=== PATIENT | male | born 1965 | race African-American/Black ===

== ENCOUNTER 2023-05-04 14:03 | Inpatient (IN) | payer OTHER ==
[~2023-05-04] VITALS: Ht 177.8 cm; Wt 86.3 kg
[2023-05-04] VITALS (13 sets, daily range): BP systolic 101–119; BP diastolic 71–77; PULSE 112–123; RESP 14–38; TEMP 97.6–97.8
[2023-05-04] MEDS ORDERED: PANTOPRAZOLE SODIUM 40 MG/VIAL IV ONE (14:30)
[2023-05-04] MEDS ORDERED: SODIUM CHLORIDE 0.9% 1,000 ML IV ONE (14:30)
[2023-05-04] MEDS ORDERED: MIDAZOLAM HCL 100 MG in DEXT 5% WATER 80 ML IV ONE (14:30)
[2023-05-04 14:40] LABS: BASOPHILS % 0.6 % (0.0-2.0); EOSINOPHILS % 0.1 % (0.0-5.0); LYMPHOCYTES % 24.3 % (20.0-50.0); MEAN CORPUSCULAR HEMOGLOBIN 29.4 pg (28.0-32.0); MEAN CORPUSCULAR VOLUME 113.4 fL (80.0-94.0); MEAN PLATELET VOLUME 8.4 fl (7.4-10.4); MONOCYTES % 8.1 % (2.0-8.0); NEUTROPHILS % 66.9 % (40.0-76.0); PLATELET 379 x1000/uL (130-400); RED CELL DISTRIBUTION WIDTH 21.8 % (11.6-14.6)
[2023-05-04] MEDS ORDERED: MIDAZOLAM HCL 100 MG in SODIUM CHLORIDE 0.9% 100 ML IV PRN (14:45)
[2023-05-04 14:47] LABS: HEMOGLOBIN. 4.7 g/dL (14.0-18.0)
[2023-05-04 14:48] LABS: HEMATOCRIT. 18.2 % (42.0-52.0); INR 1.2; PARTIAL THROMBOPLASTIN TIME 29.1 sec (23.4-31.0)
[2023-05-04 14:52] LABS: CHLORIDE 112 mEq/L (98-107)
[2023-05-04] MEDS ORDERED: CEFTRIAXONE 1GM PREMIX 50 ML IV ONE (15:00)
[2023-05-04 15:11] LABS: ETHANOL BLOOD < 10 mg/dL (-10)
[2023-05-04 15:18] LABS: PLATELET ESTIMATE NORMAL
[2023-05-04 16:23] LABS: BG BASE EXCESS -13.9 mmol/L (-2.0-2.0); BG CARBOXYHEMOGLOBIN 0.1 % (0.5-1.5); BG DEOXYHEMOGLOBIN 0.5 % (0.0-5.0); BG FRACTION INSPIRED OXYGEN 100; BG HCO3 ACT 14.3 mmol/L (22.0-26.0); BG METHEMOGLOBIN 0.6 % (0.0-1.5); BG OXYGEN SATURATION 99.5 % (92.0-98.5); BG OXYHEMOGLOBIN 98.8 % (94.0-97.0); BG PCO2 43.6 mmHg (35.0-45.0); BG PH 7.135 (7.350-7.450); BG PO2 274.8 mmHg (75.0-100.0); BG SAMPLE SITE RIGHT BRACHIAL; BG TOTAL HEMOGLOBIN 8.6 g/dL (12.0-18.0); BG VENT MODE VENT - AC
[2023-05-04] MEDS ORDERED: LORAZEPAM 0.5MG TABLET PO PRN (16:45)
[2023-05-04] MEDS ORDERED: IPRATROPIUM/ALBUTEROL 0.5-3(2.5)MG/3ML NEB HHN PRN (16:45)
[2023-05-04] MEDS ORDERED: NALOXONE HCL 0.4MG/ML VIAL IV PRN (16:45)
[2023-05-04] MEDS ORDERED: SODIUM CHLORIDE 0.9% 1,000 ML IV SCH (16:45)
[2023-05-04] MEDS ORDERED: ONDANSETRON HCL 4MG/2ML INJ IV PRN (16:45)
[2023-05-04] MEDS ORDERED: CEFTRIAXONE 1GM PREMIX 50 ML IV NR (16:45)
[2023-05-04] MEDS ORDERED: CLONIDINE 0.1MG TABLET PO PRN (16:45)
[2023-05-04] MEDS ORDERED: HYDROCODONE/ACETAMINOPHEN 5/325MG TABLET PO PRN (16:45)
[2023-05-04] MEDS ORDERED: ACETAMINOPHEN 325MG TABLET PO PRN ×2 (16:45)
[2023-05-04] MEDS ORDERED: OCTREOTIDE 1,000 MCG in SODIUM CHLORIDE 0.9% 100 ML IV ONE ×4 (17:00)
[2023-05-04] MEDS ORDERED: SODIUM BICARBONATE 150 MEQ in SODIUM CHLORIDE 0.45% 1,000 ML IV SCH (17:00)
[2023-05-04] MEDS ORDERED: PANTOPRAZOLE SODIUM 40 MG/VIAL IV SCH (17:00)
[2023-05-04 17:15] LABS: CLARITY URINE TURBID (CLEAR); COLOR URINE DARK YELLOW (YELLOW); KETONES URINE NEGATIVE (NEGATIVE); LEUKOCYTE ESTERASE URINE NEGATIVE (NEGATIVE); NITRITE URINE NEGATIVE (NEGATIVE); OCCULT BLOOD URINE 2+ (NEGATIVE); PROTEIN URINE 3+ (NEGATIVE); SPECIFIC GRAVITY URINE 1.019 (1.005-1.030)
[2023-05-04 17:16] LABS: PHOSPHORUS 5.3 mg/dL (2.5-4.9)
[2023-05-04 17:33] LABS: *AMPHETAMINES SCREEN URINE NEGATIVE (NEGATIVE); *BARBITURATES SCREEN URINE NEGATIVE (NEGATIVE); *BENZODIAZEPINES SCREEN URINE NEGATIVE (NEGATIVE); *COCAINE SCREEN URINE NEGATIVE (NEGATIVE); CANNABINOID URINE SCREEN PRESUMTIVE POSITIVE (NEGATIVE); METHADONE URINE SCREEN NEGATIVE (NEGATIVE); OPIATES URINE SCREEN PRESUMTIVE POSITIVE (NEGATIVE); PHENCYCLIDINE URINE SCREEN NEGATIVE (NEGATIVE)
[2023-05-04 17:53] LABS: VITAMIN B12 SERUM > 2000.0 pg/mL (211-911)
[2023-05-04] MEDS ORDERED: SODIUM BICARBONATE 8.4% 1 MEQ/ML 50ML SYR IV NR (18:00)
[2023-05-04 18:26] LABS: FERRITIN 1062 ng/mL (22-322)
[2023-05-04 18:37] LABS: HEPATITIS B SURFACE ANTIGEN NEGATIVE
[2023-05-04 18:38] LABS: BG BASE EXCESS -9.3 mmol/L (-2.0-2.0); BG CARBOXYHEMOGLOBIN 0.7 % (0.5-1.5); BG DEOXYHEMOGLOBIN 0.2 % (0.0-5.0); BG FRACTION INSPIRED OXYGEN 100; BG HCO3 ACT 17.3 mmol/L (22.0-26.0); BG METHEMOGLOBIN 0.4 % (0.0-1.5); BG OXYGEN SATURATION 99.8 % (92.0-98.5); BG OXYHEMOGLOBIN 98.7 % (94.0-97.0); BG PCO2 40.3 mmHg (35.0-45.0); BG PH 7.251 (7.350-7.450); BG PO2 357.3 mmHg (75.0-100.0); BG SAMPLE SITE RIGHT RADIAL; BG TOTAL HEMOGLOBIN 10.3 g/dL (12.0-18.0); BG VENT MODE VENT - AC
[2023-05-04] MEDS ORDERED: SODIUM BICARBONATE 150 MEQ in DEXTROSE 5% WATER 1,000 ML IV SCH (18:45)
[2023-05-04] MEDS ORDERED: VANCOMYCIN 1.5GM/250ML IVPB 250 ML IV NR (19:30)
[2023-05-04] MEDS ORDERED: FENTANYL 2500MCG/250ML PMX 250 ML IV PRN (21:15)
[2023-05-04] MEDS ORDERED: MIDAZOLAM 100MG/100ML PMX 100 ML IV PRN (21:30)
[2023-05-04] MEDS: FENTANYL CITRATE 2,500 MCG in SODIUM CHLORIDE 0.9% 200 ML IV PRN (21:50)
[2023-05-04] MEDS ORDERED: VANCOMYCIN 1500MG in DEXTROSE 5% WATER 250ML IV NR (22:00)
[2023-05-04] MEDS: PANTOPRAZOLE SODIUM 40 MG/VIAL IV SCH (22:34)
[2023-05-04] MEDS: MIDAZOLAM HCL 100 MG in SODIUM CHLORIDE 0.9% 100 ML IV PRN (22:43)
[2023-05-04] MEDS: SODIUM BICARBONATE 150 MEQ in DEXTROSE 5% WATER 1,000 ML IV SCH (22:44)
[2023-05-05] VITALS (90 sets, daily range): BP systolic 86–122; BP diastolic 51–88; PULSE 62–106; RESP 18–36; TEMP 97.5–98.7
[2023-05-05] MEDS: IPRATROPIUM BROMIDE (0.02%) 0.5MG/2.5ML NEB HHN SCH ×4 (01:31→20:39)
[2023-05-05 05:51] LABS: INR 1.2; PROTHROMBIN TIME 12.6 sec (9.6-11.0)
[2023-05-05] MEDS ORDERED: PIPERACILLIN/TAZOBACTAM 3.375 G in DEXTROSE 5% WATER 50 ML IV SCH (06:00)
[2023-05-05] MEDS: PIPERACILLIN/TAZOBACTAM 3.375 G in DEXTROSE 5% WATER 50 ML IV SCH ×3 (06:02→21:08)
[2023-05-05 08:46] LABS: HEMATOCRIT. 25.4 % (42.0-52.0); HEMOGLOBIN. 8.3 g/dL (14.0-18.0); MEAN CORPUSCULAR HEMOGLOBIN 28.6 pg (28.0-32.0); MEAN CORPUSCULAR VOLUME 87.9 fL (80.0-94.0); MEAN PLATELET VOLUME 8.7 fl (7.4-10.4); PLATELET 167 x1000/uL (130-400); RED BLOOD CELL COUNT 2.89 mill/uL (4.7-6.1); RED CELL DISTRIBUTION WIDTH 22.3 % (11.6-14.6)
[2023-05-05] MEDS ORDERED: VANCOMYCIN 1.25GM PMX (XELLIA) 250 ML IV SCH ×2 (09:00→10:00)
[2023-05-05 09:21] LABS: BG CARBOXYHEMOGLOBIN 0.4 % (0.5-1.5); BG DEOXYHEMOGLOBIN 0.5 % (0.0-5.0); BG FRACTION INSPIRED OXYGEN 70; BG HCO3 ACT 26.1 mmol/L (22.0-26.0); BG METHEMOGLOBIN 0.4 % (0.0-1.5); BG OXYGEN SATURATION 99.5 % (92.0-98.5); BG OXYHEMOGLOBIN 98.7 % (94.0-97.0); BG PCO2 34.2 mmHg (35.0-45.0); BG PH 7.501 (7.350-7.450); BG PO2 194.4 mmHg (75.0-100.0); BG SAMPLE SITE RIGHT RADIAL; BG VENT MODE VENT - AC
[2023-05-05] MEDS: PANTOPRAZOLE SODIUM 40 MG/VIAL IV SCH ×2 (10:06→20:29)
[2023-05-05] MEDS: MIDAZOLAM HCL 100 MG in SODIUM CHLORIDE 0.9% 100 ML IV PRN ×2 (12:17→23:31)
[2023-05-05] MEDS: SODIUM BICARBONATE 150 MEQ in DEXTROSE 5% WATER 1,000 ML IV SCH (13:32)
[2023-05-05] MEDS ORDERED: DEXT 5%/0.45% NACL 500ML 500 ML IV ONE (15:00)
[2023-05-05] MEDS: DEXT 5%/0.45% NACL 1000ML 1,000 ML IV SCH (17:22)
[2023-05-05 22:22] LABS: PLATELET ESTIMATE NORMAL
[2023-05-05] MEDS: FENTANYL CITRATE 2,500 MCG in SODIUM CHLORIDE 0.9% 200 ML IV PRN (23:32)
[2023-05-06] VITALS (55 sets, daily range): BP systolic 83–148; BP diastolic 58–99; PULSE 1–78; RESP 18–39; TEMP 97.3–98; O2SAT 100
[2023-05-06] MEDS: IPRATROPIUM BROMIDE (0.02%) 0.5MG/2.5ML NEB HHN SCH ×3 (00:31→14:03)
[2023-05-06] MEDS: DEXT 5%/0.45% NACL 1000ML 1,000 ML IV SCH ×2 (03:19→11:48)
[2023-05-06] MEDS: PIPERACILLIN/TAZOBACTAM 3.375 G in DEXTROSE 5% WATER 50 ML IV SCH (05:40)
[2023-05-06 05:45] LABS: BASOPHILS % 0.2 % (0.0-2.0); EOSINOPHILS % 0.6 % (0.0-5.0); HEMATOCRIT. 23.6 % (42.0-52.0); HEMOGLOBIN. 7.8 g/dL (14.0-18.0); LYMPHOCYTES % 10.1 % (20.0-50.0); MEAN CORPUSCULAR HEMOGLOBIN 29.1 pg (28.0-32.0); MEAN CORPUSCULAR VOLUME 88.3 fL (80.0-94.0); MEAN PLATELET VOLUME 8.7 fl (7.4-10.4); MONOCYTES % 7.7 % (2.0-8.0); NEUTROPHILS % 81.4 % (40.0-76.0); PLATELET 125 x1000/uL (130-400); RED BLOOD CELL COUNT 2.68 mill/uL (4.7-6.1); RED CELL DISTRIBUTION WIDTH 22.6 % (11.6-14.6)
[2023-05-06 05:54] LABS: INR 1.1; PROTHROMBIN TIME 11.7 sec (9.6-11.0)
[2023-05-06 05:57] LABS: CHLORIDE 107 mEq/L (98-107)
[2023-05-06 06:26] LABS: CREATINE KINASE 155 IU/L (39-308)
[2023-05-06] MEDS ORDERED: POTASSIUM CHLORIDE INJ 40 MEQ in DEXT 5% WATER 250 ML IV ONE (07:45)
[2023-05-06] MEDS: PANTOPRAZOLE SODIUM 40 MG/VIAL IV SCH (08:23)
[2023-05-06] MEDS ORDERED: NOREPINEPHRINE 32 MG in DEXT 5% WATER 218 ML IV PRN (08:30)
[2023-05-06 09:08] LABS: BG CARBOXYHEMOGLOBIN 1.2 % (0.5-1.5); BG DEOXYHEMOGLOBIN 2.7 % (0.0-5.0); BG FRACTION INSPIRED OXYGEN 40; BG HCO3 ACT 28.1 mmol/L (22.0-26.0); BG METHEMOGLOBIN 0.3 % (0.0-1.5); BG OXYGEN SATURATION 97.3 % (92.0-98.5); BG OXYHEMOGLOBIN 95.8 % (94.0-97.0); BG PH 7.523 (7.350-7.450); BG SAMPLE SITE RIGHT RADIAL; BG TOTAL HEMOGLOBIN 7.6 g/dL (12.0-18.0); BG VENT MODE VENT - AC
[2023-05-06] MEDS: KCL 20MEQ/100ML X 2 FOR TOTAL KCL 40MEQ/200ML IV SCH ×2 (09:15→11:24)
[2023-05-06] MEDS ORDERED: CEFEPIME 2,000 MG in DEXT 5% WATER 100 ML IV SCH (11:00)
[2023-05-06] MEDS: METRONIDAZOLE 500 MG PREMIX 100 ML IV SCH ×2 (11:24→14:11)
[2023-05-06] MEDS: MIDAZOLAM HCL 100 MG in SODIUM CHLORIDE 0.9% 100 ML IV PRN (11:50)
[2023-05-06 13:02] LABS: AMYLASE 261 IU/L (25-115)
[2023-05-06] MEDS ORDERED: AZITHROMYCIN 500 MG in DEXT 5% WATER 250 ML IV SCH (14:00)
== END 2023-05-06 16:36 | disposition short-term general hospital (02) | DRG 871 ==
LOC: ER 14:03 → EDBEDREQ 15:18 → EDBEDREQTM 15:18 → EDBEDREQSVC 15:18 → MICUSO 15:20
PROVIDERS: ADMIT Internal Medicine; ATTEND Internal Medicine
PROC: 5A1945Z Respiratory Ventilation, 24-96 Consecutive Hours (ICD-10-PCS; principal; 2023-05-04)
PROC: 0BH17EZ Insertion of Endotracheal Airway into Trachea, Via Natural or Artificial Opening (ICD-10-PCS; 2023-05-04)
PROC: 30233N1 Transfusion of Nonautologous Red Blood Cells into Peripheral Vein, Percutaneous Approach (ICD-10-PCS; 2023-05-04)
DX: A41.9 Sepsis, unspecified organism (principal); E43 Unspecified severe protein-calorie malnutrition; G93.41 Metabolic encephalopathy; J69.0 Pneumonitis due to inhalation of food and vomit; J96.00 Acute respiratory failure, unspecified whether with hypoxia or hypercapnia; N17.0 Acute kidney failure with tubular necrosis; R65.21 Severe sepsis with septic shock; E87.0 Hyperosmolality and hypernatremia; E87.20 Acidosis, unspecified; K92.0 Hematemesis; Z20.822 Contact with and (suspected) exposure to COVID-19; D53.9 Nutritional anemia, unspecified; E88.09 Other disorders of plasma-protein metabolism, not elsewhere classified; K74.60 Unspecified cirrhosis of liver; K86.89 Other specified diseases of pancreas; M71.22 Synovial cyst of popliteal space [Baker], left knee; N28.1 Cyst of kidney, acquired; E87.6 Hypokalemia; Z85.028 Personal history of other malignant neoplasm of stomach; Z87.891 Personal history of nicotine dependence; Z68.27 Body mass index [BMI] 27.0-27.9, adult
CPT/HCPCS: 31500; 36415; 36600; 71045; 74018; 76700; 80048; 80053; 80076; 80202; 80305; 80320; 81003; 82107; 82140; 82150; 82375; 82550; 82607; 82728; 82746; 82805; 82962; 83540; 83550; 83605; 83735; 83880; 84100; 84145; 84484; 85018; 85025; 85044; 86301; 86705; 86709; 86803; 86850; 86900; 86920; 87070; 87106; 87340; 87426; 93005; 93306; 93970; 93976; 94002; 94003; 94640; 99291; A6261; C9113; C9803; J0456; J0692; J0696; J2250; J2354; J2543; J3010; J3370; J3480; J3490; J7030; J7050; J7060; J7070; P9016; A4315; G0480

== ENCOUNTER 2023-05-16 15:12 | Emergency (ER) | payer OTHER ==
[~2023-05-16] VITALS: Ht 185.4 cm; Wt 98.0 kg
[2023-05-16 15:25] VITALS: O2SAT 100
[2023-05-16] MEDS ORDERED: CEFTRIAXONE 1GM PREMIX 50 ML IV ONE (15:30)
[2023-05-16] MEDS ORDERED: SODIUM CHLORIDE 0.9% 1000ML BAG (SEPSIS BOLUS) IV ONE (15:30)
[2023-05-16 15:37] VITALS: RESP 36
[2023-05-16 15:52] LABS: MEAN CORPUSCULAR HEMOGLOBIN 28.6 pg (28.0-32.0); MEAN CORPUSCULAR VOLUME 96.2 fL (80.0-94.0); MEAN PLATELET VOLUME 9.7 fl (7.4-10.4); PLATELET 308 x1000/uL (130-400); RED BLOOD CELL COUNT 2.04 mill/uL (4.7-6.1); RED CELL DISTRIBUTION WIDTH 21.2 % (11.6-14.6)
[2023-05-16 15:53] LABS: INR 1.5; PROTHROMBIN TIME 15.7 sec (9.6-11.0)
[2023-05-16 15:57] LABS: CHLORIDE 109 mEq/L (98-107)
[2023-05-16 15:59] LABS: HEMOGLOBIN. 5.8 g/dL (14.0-18.0)
[2023-05-16 16:00] LABS: HEMATOCRIT. 19.6 % (42.0-52.0)
[2023-05-16 16:15] LABS: BG BASE EXCESS -14.8 mmol/L (-2.0-2.0); BG CARBOXYHEMOGLOBIN 0.3 % (0.5-1.5); BG DEOXYHEMOGLOBIN 0.3 % (0.0-5.0); BG FRACTION INSPIRED OXYGEN 100; BG HCO3 ACT 10.2 mmol/L (22.0-26.0); BG METHEMOGLOBIN 0.4 % (0.0-1.5); BG OXYGEN SATURATION 99.7 % (92.0-98.5); BG PCO2 21.6 mmHg (35.0-45.0); BG PH 7.294 (7.350-7.450); BG PO2 503.8 mmHg (75.0-100.0); BG TOTAL HEMOGLOBIN 7.2 g/dL (12.0-18.0); BG VENT MODE MASK - BIPAP
[2023-05-16 17:19] LABS: NUCLEATED RED BLOOD CELLS 1 /100 WBC; PLATELET ESTIMATE NORMAL
[2023-05-16 17:30] VITALS: BP 99/65; PULSE 99; RESP 36; TEMP 98
[2023-05-18] MEDS ORDERED: MORP10SY6 MT (18:22)
[2023-05-18] MEDS ORDERED: FURO-152 MT (18:25)
[2023-05-18] MEDS ORDERED: POTA-194 MT (18:27)
[2023-05-19] MEDS ORDERED: METR-167 MT (14:02)
[2023-05-19] MEDS ORDERED: LEVO750T68 MT (14:02)
== END 2023-05-16 19:06 | disposition left against medical advice (07) ==
LOC: ER 15:12 → CANBEDREQ 05-17 20:32
DX: R06.02 Shortness of breath (principal)
CPT/HCPCS: 80053; 83605; 85025; 85610; 86850; 86900; 86901; 86920; 87040; 84484; 36415; 84145; 71045; 82805; 82375; 94660; 93005; 96365; 99291; 36600; J0696; J7030; Z7610